=== PATIENT | male | born 1955 | race Caucasian/White ===

== ENCOUNTER 2022-06-03 20:12 | Outpatient (CLI) | payer MEDICARE, MEDICAID | END 2022-06-03 20:13 | disposition EMS.NT | LOC: EMS 20:12 | DX: R07.0 Pain in throat (principal) ==

== ENCOUNTER 2022-06-03 20:55 | Emergency (ER) | payer MEDICAID, MEDICARE ==
--- NOTE | 2022-06-03 21:03 | ED Physician Documentation ---
History of Present Illness - Stated complaint Stated Complaint: CHOKING - Additonal information Additional information: Patient is 66-year-old male presenting to the emergency department after choking event. Accompanied by who is present at bedside. They report 1 year history of dysphagia with similar choking events in the past. States have been followed with gastroenterology and has had endoscopy done but clear etiology for patient's dysphagia is at this time uncertain. Today was eating brisket, had a choking event lasted for several moments. Currently states he feels as though there is a mass in his throat. He is able to swallow his own secretions with ease. Denies any shortness of breath, chest pain. Review of Systems Ten Systems: 10 systems reviewed and negative Constitutional: denies: Fever Eyes: denies: Loss of vision Ears: denies: Loss of hearing Nose: denies: Rhinorrhea / runny nose Throat: reports: Other (Trouble swallowing) Cardiac: denies: Chest pain / pressure Respiratory: denies: Dyspnea GI: denies: Abdominal Pain : denies: Dysuria Skin: denies: Rash Musculoskeletal: denies: Neck pain PD PAST MEDICAL HISTORY - Present Medications Home Medications: Ambulatory Orders Medication Instructions Recorded Confirmed lisinopriL [Zestril] 5 mg PO DAILY 06/03/22 06/03/22 predniSONE [Deltasone] 10 mg PO DAILY 06/03/22 06/03/22 - Allergies Allergies/Adverse Reactions: Allergies Allergy/AdvReac Type Severity Reaction Status Date / Time No Known Drug Allergies Allergy Verified 06/03/22 21:08 PD ED PE NORMAL - Vitals Vital signs reviewed: Yes - General General: Alert and oriented X 3, No acute distress, Well developed/nourished - HEENT HEENT: Atraumatic, PERRL, EOMI, Ears normal, Moist mucous membranes, Pharynx benign, Dentition benign - Neck Neck: Supple, no meningeal sign, No bony TTP, No adenopathy, Thyroid normal, No JVD, No bruit, Other - Cardiac Cardiac: RRR - Respiratory Respiratory: No respiratory distress - Extremities Extremities: No deformity - Neuro Neuro: Alert and oriented X 3, manager pacu 2-12 intact, No motor deficit Results - Vitals Vitals: Vital Signs - 24 hr 06/03/22 21:00 Temperature 36.3 C L Heart Rate 92 Respiratory 18 Rate Blood Pressure 163/79 H O2 Saturation 97 Oxygen O2 Source Room air PD MEDICAL DECISION MAKING - ED course Complexity details: reviewed results, d/w patient, d/w family ED course: Patient is 66-year-old male presenting to the emergency department after choking event while eating brisket in the setting of dysphagia that is been ongoing x1 year. Afebrile, hematin stable on arrival to the emergency department. Nonfocal nonla teralizing neurologic exam. Patient had normal phonation in the emergency department with no indications of airway compromise. Given viscous lidocaine which he tolerated well here in the emergency d epartment. X-rays of the soft tissue of neck and chest were benign. No indications of esophageal impaction at this time. Will discharge with instructions for dysphagia diet, as well as continue with small sips of tolerated fluid and encourage careful follow-up with primary care. Departure - Departure Disposition: 01 Home, Self Care Clinical Impression: Dysphagia, Choking due to food (regurgitated) Instructions: Dysphagia Diet Pureed, Dysphagia Diet Manage Liquids Comments: Thank you for allowing us to care for you today at [facility]. The x-rays taken today did not demonstrate any retained foreign body or food mass. I have attached some information about dietary changes that can be very helpful in the setting of longstanding dysphagia to help decrease your risk for choking events in the future. I do recommend continue with small sips of nectar thickened fluid for the next few days. Would also like you to follow-up with your primary care doctor as soon as possible for medical recheck. If it anytime you have any new or worsening symptoms please not hesitate to return.
[2022-06-03] MEDS ORDERED: LIDOCAINE VISCOUS 2% 15 ML UDC MM STA (21:09)
--- NOTE | 2022-06-03 21:56 | XRAY Report ---
PROCEDURE: Chest 2 View X-Ray INDICATIONS: Choking event TECHNIQUE: 2 view of the chest. COMPARISON: None. FINDINGS: Surgical changes and devices: None. Lungs and pleura: No pleural effusions or pneumothorax. Lungs are clear. No radiopaque foreign bodi es identified. The visualized airway appears patent. Mediastinum: Mediastinal contours are normal. Heart size is normal. Bones and chest wall: No suspicious bony abnormalities. Soft tissues appear unremarkable. IMPRESSION: 1. No radioopaque foreign bodies or atelectasis. 2. Visualized airways appear patent. Reviewed by: Raul Aguilar MD on 06/03/2022 9:55 PM PDT Approved by: Raul Aguilar MD on 06/03/2022 9:55 PM PDT Station ID: [id number]
--- NOTE | 2022-06-03 21:57 | XRAY Report ---
PROCEDURE: Neck Soft Tissue INDICATIONS: choking event TECHNIQUE: 2 views of the neck were acquired. COMPARISON: Concurrent x-ray of the chest. FINDINGS: Airway: The airway appears patent. Soft tissues: The airway appears patent. Prevertebral soft tissues are normal in thickness. The epi glottis and aryepiglottic folds appear normal. No soft tissue gas. No radiopaque foreign bodies iden tified. Bones: No suspicious bony lesions. Visualized cervical spine is normally aligned. IMPRESSION: 1. No radiopaque foreign body identified. 2. Airway appears patent. Reviewed by: Raul Aguilar MD on 06/03/2022 9:56 PM PDT Approved by: Raul Aguilar MD on 06/03/2022 9:56 PM PDT Station ID: [id number]
[2022-06-03 22:11] VITALS: BP 141/86
== END 2022-06-03 22:18 | disposition home or self-care (01) ==
LOC: ED 20:55
DX: T18.120A Food in esophagus causing compression of trachea, initial encounter (principal); R13.10 Dysphagia, unspecified; X58.XXXA Exposure to other specified factors, initial encounter
CPT/HCPCS: 99284